=== PATIENT | male | born 1990 | race Caucasian/White ===

== ENCOUNTER 2017-03-19 10:40 | Emergency (ER) | payer BC, OTHER ==
[2017-03-19 10:51] VITALS: RESP 16; TEMP 98.1; O2SAT 95
[2017-03-19] MEDS ORDERED: PROPARACAINE 0.5% 15 ML OPHT DROP ONE (11:09)
[2017-03-19] MEDS ORDERED: FLUORESCEIN SODIUM 1 MG STRIP OP ONE (11:09)
--- NOTE | 2017-03-19 11:24 | EDPHY ---
H & P Stated Complaint: Had eyelash in R eye yesterday; things maybe corneal abrasion HPI/ROS: Chief complaint: Right eye discomfort History of present illness: This is a 20-year-old male who presents to the emergency department for right eye discomfort. He reports symptoms began a day ago. Symptoms have been persistent. He believes he got an eyelash into his eye and he was constantly rubbing it. He was able to get the eye lash out. Since then he has had the discomfort. He is concerned he has scratched his eye. He denies other associated signs or symptoms including no other trauma, no fevers or cold symptoms, no changes in vision. - Personal History Current Tetanus Diphtheria and Acellular Pertussis (TDAP): Yes - Medical/Surgical History Hx Asthma: No Hx Chronic Respiratory Disease: No Hx Diabetes: No Hx Cardiac Disease: No Hx Renal Disease: No Hx Cirrhosis: No Hx Alcoholism: No Hx HIV/AIDS: No Hx Splenectomy or Spleen Trauma: No Other PMH: allergies to tucker - Social History Smoking Status: Current every day smoker - Physical Exam Exam: General: Alert, nontoxic Eyes: Patient is tearing in the right eye. No pustular discharge. Mild injection of the conjunctiva of the right eye. No subconjunctival hemorrhage. No hyphema. No hypopyon. Left eye unremarkable. PERRLA. EOM intact. Red reflex present bilaterally. Skin: No erythema or edema of the periorbital tissues. Constitutional: Initial Vital Signs Temperature (C) 36.7 C 03/19/17 10:45 Heart Rate 65 03/19/17 10:45 Respiratory Rate 16 03/19/17 10:45 Blood Pressure 130/71 H 03/19/17 10:45 O2 Sat (%) 95 03/19/17 10:45 O2 Delivery Mode Room Air Allergies/Adverse Reactions: avocado Allergy (Verified 03/19/17 10:48) banana Allergy (Verified 03/19/17 10:48) [place] [employer]ivatives Allergy (Verified 03/19/17 10:48) pineapple Allergy (Verified 03/19/17 10:48) nuts Allergy (Uncoded 08/05/14 15:01) Home Medications: Medication Instructions Recorded Moxifloxacin HCl [Vigamox] 1 drops OP TID 7 Days drops 03/19/17 Medical Decision Making Procedures: Visual acuity: Right eye 20/25, left eye 20/20, both eyes 20/20 Procedure: Slit-lamp examination Indication: Right eye discomfort, possible foreign body or injury Patient's eye was stained with floor seen in [place]. It was examined with cobalt blue and white light. A filling defect was noted at the 7 o'clock position overlying the iris. No foreign body noted. No Tu sign. ED Course/Re-evaluation: Patient seen under the supervision of my secondary supervising physician Dr. Harish Garcia. Patient presents to the emergency department for right eye discomfort. He appears to have a corneal abrasion. I do not appreciate evidence of further complications. He has not used contacts in a while and I have asked him not to use contacts until cleared by Ophthalmology. He is started on Vigamox. Home care is discussed. Again he is referred to ophthalmology for recheck. Return precautions are given. Patient voiced understanding and agreement with plan. Differential Diagnosis: Included but not limited to corneal foreign body, corneal abrasion, conjunctivitis unlikely corneal ulceration or globe rupture Departure - Departure Disposition: Home, Routine, Self-Care Clinical Impression: Corneal abrasion Qualifiers: Encounter type: initial encounter Laterality: right Qualified Code(s): S05.01XA - Injury of conjunctiva and corneal abrasion without foreign body, right eye, initial encounter Condition: Good Instructions: Corneal Abrasion (ED) Additional Instructions: Please follow-up with an eye doctor for recheck Do not use contacts until cleared by her eye doctor Use antibiotics as prescribed If symptoms worsen or new symptoms develop return to the emergency room for recheck Referrals: NONE *PRIMARY CARE P,. [Primary Care Provider] - As per Instructions Pravin Hodge MD [Medical Doctor] - As per Instructions Prescriptions: Moxifloxacin HCl [Vigamox] 1 drops OP TID 7 Days drops
[2017-03-19 11:36] VITALS: BP 133/65; PULSE 66
== END 2017-03-19 11:34 | disposition home or self-care (01) ==
DX: S05.01XA Injury of conjunctiva and corneal abrasion without foreign body, right eye, initial encounter (principal); F17.200 Nicotine dependence, unspecified, uncomplicated; X58.XXXA Exposure to other specified factors, initial encounter